=== PATIENT | male | born 1950 | race Hispanic/Latino ===

== ENCOUNTER 2017-08-27 05:54 | Day surgery (SDC) | payer OTHER ==
[2017-08-23 10:23] VITALS: BP 131/72
[2017-08-23 11:09] LABS: BASOPHILS % (AUTO) 1.1 % (0.0-5.0); EOSINOPHILS % (AUTO) 2.2 % (0.0-8.0); HEMATOCRIT 42.3 % (42-54); MEAN CORPUSCULAR HEMOGLOBIN 29.5 pg (27.0-33.0); MEAN CORPUSCULAR HGB CONC 33.3 g/dL (32.0-36.0); MEAN CORPUSCULAR VOLUME 88.5 fL (79-99); MONOCYTES % (AUTO) 6.2 % (3.0-13.0); NEUTROPHILS % (AUTO) 47.5 % (40.0-77.0); PLATELET COUNT (AUTO) 195 K/uL (130-400); RED BLOOD CELL COUNT(AUTO) 4.78 MIL/uL (4.50-6.20); WHITE BLOOD COUNT (AUTO) 6.1 K/uL (4.8-10.8)
[2017-08-23 11:23] LABS: APPEARANCE,URINE Clear (CLEAR); BILIRUBIN,URINE Negative (NEGATIVE); COLOR,URINE Yellow (YELLOW); GLUCOSE, URINE (UA) Negative (NEGATIVE); KETONES,URINE Negative (NEGATIVE); LEUKOCYTE ESTERASE ,URINE Negative (NEGATIVE); NITRATE,URINE Negative (NEGATIVE); OCCULT BLOOD,URINE Trace (NEGATIVE); PROTEIN,URINE Negative (NEGATIVE); UROBILINOGEN,URINE 0.2 mg/dL (0.2-1.0)
[2017-08-23 11:28] LABS: POTASSIUM 4.2 mmol/L (3.5-5.1)
[2017-08-23 11:32] LABS: INR 0.98 (0.85-1.15); PARTIAL THROMBOPLASTIN TIME 26.8 SEC (26.3-35.5); PROTHROMBIN TIME 10.3 SEC (9.6-11.6)
[2017-08-23 11:39] LABS: BACTERIA,URINE None Seen /HPF (None Seen); RBC,URINE 0-1 /HPF (0-1); SQUAMOUS EPITHELIAL CELL,UR 0-2 /LPF (0-2); WBC,URINE None Seen /HPF (0-1)
[2017-08-27] VITALS (10 sets, daily range): BP systolic 129–145; BP diastolic 64–74
[~2017-08-27] VITALS: Ht 172.7 cm; Wt 83.3 kg
[~2017-08-27 05:54] MED LIST: ASPI-1181 PO; ATOR-2 PO; FINA5TAB41 PO; FISH12002 PO; ISOS30TA6 PO; LOSA50TA37 PO; OMEGA 3,6,9 PO; TAMS0.4C32 PO; UBID1CAP61 PO
[2017-08-27] MEDS ORDERED: ASPI-1181 PO (06:27)
[2017-08-27] MEDS ORDERED: UBID200C37 PO (06:27)
[2017-08-27] MEDS ORDERED: SODIUM CHLORIDE 0.9% 1000ML 1,000 ML IV ONE (06:31)
[2017-08-27] MEDS ORDERED: IOPAMIDOL-370 100 ML VIAL IV ONE (07:12)
[2017-08-27] MEDS ORDERED: LIDOCAINE HCL 2% 20ML ONE (07:12)
[2017-08-27] MEDS ORDERED: HEPARIN SODIUM 1000UNIT/ML 10ML VIAL ONE (07:12)
[2017-08-27] MEDS ORDERED: ISOVUE-370 50ML VIAL IV ONE (07:12)
[2017-08-27] MEDS ORDERED: GLUCAGON 1MG KIT 1 MG ML IM PRN (08:00)
[2017-08-27] MEDS ORDERED: DEXTROSE 50%-WATER 50 ML DISP.SYRIN IV PRN (08:00)
[2017-09-10] MEDS ORDERED: GLUC-145 PO (09:29)
[2017-09-17] MEDS ORDERED: TRAM50TA2 PO (07:43)
== END 2017-08-27 12:15 | disposition home or self-care (01) ==
LOC: DAH 05:54
PROVIDERS: ATTEND Internal Medicine Cardiovascular Disease
DX: I25.10 Atherosclerotic heart disease of native coronary artery without angina pectoris (principal); I10 Essential (primary) hypertension; E78.5 Hyperlipidemia, unspecified; Z90.49 Acquired absence of other specified parts of digestive tract; Z79.899 Other long term (current) drug therapy
CPT/HCPCS: 36415; 71010; 80048; 81001; 85025; 85610; 85730; 93005; 93454; 99156; 99157; A4606; C1760; C1894; J1644; J3490; J7030; Q9967

== ENCOUNTER → 2017-11-22 | Outpatient (CLI) | payer OTHER ==
[~2017-11-22] MED LIST changes: +GLUC-145 PO; -OMEGA 3,6,9 PO; +TRAM50TA2 PO; -UBID1CAP61 PO; +UBID200C37 PO
== END | disposition home or self-care (01) ==
LOC: SHCH 10:11
PROVIDERS: ATTEND Internal Medicine Cardiovascular Disease
DX: I25.10 Atherosclerotic heart disease of native coronary artery without angina pectoris (principal)
CPT/HCPCS: 93306

== ENCOUNTER 2019-02-26 06:57 | Observation (INO) | payer OTHER, MEDICARE ==
[~2019-02-26] VITALS: Ht 172.7 cm; Wt 86.2 kg
[~2019-02-26 06:57] MED LIST changes: -LOSA50TA37 PO; +LOSA50TA64 PO
[2019-02-26 07:20] LABS: BASOPHILS % (AUTO) 1.3 % (0.0-5.0); EOSINOPHILS % (AUTO) 2.1 % (0.0-8.0); HEMATOCRIT 40.5 % (42-54); LYMPHOCYTES % (AUTO) 43.7 % (21.0-51.0); MEAN CORPUSCULAR HEMOGLOBIN 29.7 pg (27.0-33.0); MEAN CORPUSCULAR VOLUME 87.3 fL (79-99); MONOCYTES % (AUTO) 5.9 % (3.0-13.0); PLATELET COUNT (AUTO) 121 K/uL (130-400); RED BLOOD CELL COUNT(AUTO) 4.63 MIL/uL (4.50-6.20); RED CELL DISTRIBUTION WIDTH 14.2 % (11.0-15.5); WHITE BLOOD COUNT (AUTO) 5.4 K/uL (4.8-10.8)
[2019-02-26 07:29] LABS: CREATININE 1.2 mg/dL (0.5-1.5); POTASSIUM 4.1 mmol/L (3.5-5.1)
[2019-02-26 07:34] LABS: INR 1.07 (0.85-1.15); PARTIAL THROMBOPLASTIN TIME 27.8 SEC (26.3-35.5); PROTHROMBIN TIME 11.2 SEC (9.6-11.6)
[2019-02-26 07:36] LABS: ALBUMIN 3.5 g/dL (3.5-5.0); BILIRUBIN,TOTAL 0.4 mg/dL (0.2-1.0); TOTAL PROTEIN, SERUM 7.1 g/dL (6.0-8.3)
[2019-02-26] MEDS ORDERED: ASPIRIN 325 MG TABLET ONE (07:40)
[2019-02-26] MEDS ORDERED: LIDOCAINE HCL 2% VISCOUS 15 ML UDCUP ONE (07:49)
[2019-02-26] MEDS ORDERED: MAG HYDROX/AL HYDROX/SIMETH ES 30 ML SUSP UDCUP ONE (07:49)
[2019-02-26 07:56] LABS: B-TYPE NATRIURETIC PEPTIDE 94 pg/mL (0-100)
[2019-02-26] MEDS ORDERED: NITROGLYCERIN 1GM/1 INCH PACKET TD ONE (08:57)
[2019-02-26] MEDS ORDERED: ENOXAPARIN SODIUM 60 MG/0.6 ML SQ ONE (10:28)
[2019-02-26] MEDS ORDERED: ACETAMINOPHEN 325 MG TAB PO PRN ×2 (10:45)
[2019-02-26] MEDS ORDERED: NITROGLYCERIN 1GM/1 INCH PACKET TD SCH (10:45)
[2019-02-26] MEDS ORDERED: MORPHINE SULFATE 2 MG/ML 1ML SYG IV PRN (10:45)
[2019-02-26] MEDS ORDERED: HYDRALAZINE HCL 20 MG/ML VIAL IV PRN (10:45)
[2019-02-26] MEDS ORDERED: ONDANSETRON HCL 4 MG/2 ML VIAL IV PRN (10:45)
[2019-02-26 11:07] LABS: HEMOGLOBIN A1C 6.2 % (4.0-6.0)
[2019-02-26 11:26] LABS: BILIRUBIN,URINE Negative (NEGATIVE); COLOR,URINE Yellow (YELLOW); GLUCOSE, URINE (UA) Negative (NEGATIVE); KETONES,URINE Negative (NEGATIVE); LEUKOCYTE ESTERASE ,URINE Negative (NEGATIVE); NITRATE,URINE Negative (NEGATIVE); OCCULT BLOOD,URINE Negative (NEGATIVE); PROTEIN,URINE Negative (NEGATIVE)
[2019-02-26 11:27] LABS: APPEARANCE,URINE CLEAR (CLEAR)
[2019-02-26 11:57] VITALS: BP 152/83
[2019-02-26 12:56] LABS: CREATINE KINASE, TOTAL 178 U/L (21-232); MYOGLOBIN 85 ng/mL (10-92)
[2019-02-26] MEDS: NITROGLYCERIN 1GM/1 INCH PACKET TD SCH ×2 (13:15→21:04)
[2019-02-26 13:47] LABS: TROPONIN I 1.05 ng/mL (0.00-0.06)
[2019-02-26 16:00] VITALS: BP 129/87
--- NOTE | 2019-02-26 16:32 | NUR ---
DC PLAN VISITED WITH PATIENT. PATIENT LIVES WITH SPOUSE. INDEPENDENT ABLE TO PERFORM ADL'S. PATIENT HAS NO SERVICES OR DME'S. FEELS SAFE TO RETURN HOME. Addendum: 02/26/19 at 1633 by JAQUI QUISPE RN CM Amended: Links added.
[2019-02-26 19:27] VITALS: BP 140/93
[2019-02-26] MEDS ORDERED: METOPROLOL TARTRATE 25 MG TAB PO SCH (21:00)
[2019-02-26] MEDS: METOPROLOL TARTRATE 25 MG TAB PO SCH (21:00)
[2019-02-26] MEDS ORDERED: ATORVASTATIN CALCIUM 40 MG TABLET PO SCH (21:00)
[2019-02-26] MEDS: ENOXAPARIN SODIUM 100 MG/1 ML SQ SCH (21:03)
[2019-02-26 23:47] VITALS: BP 150/72
[2019-02-27] VITALS (10 sets, daily range): BP systolic 120–146; BP diastolic 53–86
[2019-02-27 04:51] LABS: CHOLESTEROL 171 mg/dL (<200); HDL CHOLESTEROL 36 mg/dL (29-71); LDL DIRECT 106 mg/dL (0-99); TRIGLYCERIDES 138 mg/dL (30-200)
[2019-02-27] MEDS: NITROGLYCERIN 1GM/1 INCH PACKET TD SCH (05:42)
[2019-02-27] MEDS ORDERED: LIDOCAINE HCL 1% 20 ML VIAL ONE (08:20)
[2019-02-27] MEDS ORDERED: HEPARIN SODIUM 1000UNIT/ML 10ML VIAL ONE (08:21)
[2019-02-27] MEDS ORDERED: IOHEXOL 350 MG/ML 100ML INFUS..BTL IV ONE ×2 (08:21→09:13)
[2019-02-27] MEDS ORDERED: IOHEXOL-350 50ML VIAL IV ONE (08:21)
[2019-02-27] MEDS ORDERED: FAMOTIDINE/PF 20 MG/2 ML VIAL IV SCH (09:00)
[2019-02-27] MEDS ORDERED: LOSARTAN 50 MG TABLET PO SCH (09:00)
[2019-02-27] MEDS ORDERED: ENOXAPARIN SODIUM 40 MG/0.4 ML SYRINGE SQ SCH (09:00)
[2019-02-27] MEDS ORDERED: ASPIRIN 325 MG TABLET PO SCH ×3 (09:00)
[2019-02-27] MEDS: METOPROLOL TARTRATE 25 MG TAB PO SCH (09:00)
[2019-02-27] MEDS: ENOXAPARIN SODIUM 100 MG/1 ML SQ SCH (09:00)
--- NOTE | 2019-02-27 10:00 | NUR ---
Patient returned from clinical laboratory manager. Pt awake and alert in no distress. patient with angioseal to Right Groin, site clean dry and intact. No s/s of bleeding or hematoma. Instructed patient/ bedrest for 3 hours. No sitting up in bed or moving right leg. Pt/ verbalized understanding. Call light placed within reach. Continue to monitor and assess.
[2019-02-27] MEDS ORDERED: RANO500T2 PO (12:01)
--- NOTE | 2019-02-27 18:04 | NUR ---
Patient discharged in stable condition. Site to right groin, clean dry and intact. No s/s of bleeding. Instructed if bleed occurs, apply pressure and call 911. Do not shower till 24 hours after cath. Instructed on when to call 911, chest pain, SOB, altered mental status, severe pain, n/v. Instructed on new prescription and how to take. pt verbalized understand to all teaching. arrived and verbalized understanding. IV removed to left and right arm. No other questions or concerns voiced.
== END 2019-02-27 18:30 | disposition home or self-care (01) ==
LOC: EDH 06:57 → EDHIP 10:37 → INTOOBSV 10:37 → 2AH 12:12
PROVIDERS: ADMIT Internal Medicine; ATTEND Internal Medicine
DX: I25.110 Atherosclerotic heart disease of native coronary artery with unstable angina pectoris (principal); I35.0 Nonrheumatic aortic (valve) stenosis; I21.4 Non-ST elevation (NSTEMI) myocardial infarction; E78.5 Hyperlipidemia, unspecified; I10 Essential (primary) hypertension; I44.7 Left bundle-branch block, unspecified; Z87.891 Personal history of nicotine dependence; Z95.1 Presence of aortocoronary bypass graft; Z95.5 Presence of coronary angioplasty implant and graft; Z83.3 Family history of diabetes mellitus; Z82.49 Family history of ischemic heart disease and other diseases of the circulatory system; Z79.899 Other long term (current) drug therapy
CPT/HCPCS: 36415 ×2; 71045; 80053; 80061; 81003; 82550 ×3; 83036; 83690; 83874 ×2; 83880; 84484 ×3; 85025; 85610; 85730; 87804 ×2; 93005 ×3; 93306; 93455; 96372; 96374; 99284; C1760; C1769 ×2; C1894; G0378 ×29; J1644; J1650 ×2; J3490; Q9965 ×2; Q9967 ×3

== ENCOUNTER → 2020-05-20 | Outpatient (CLI) | payer OTHER, MEDICARE ==
[~2020-05-20] MED LIST changes: -ASPI-1181 PO; +ASPI-1443 PO; -GLUC-145 PO; +RANO500T2 PO; +REGADENOSON 0.4 MG/5 ML PF SYG IVP SCH; -TRAM50TA2 PO
== END | disposition home or self-care (01) ==
LOC: SHCH 08:11
PROVIDERS: ATTEND Internal Medicine Cardiovascular Disease
DX: I21.29 ST elevation (STEMI) myocardial infarction involving other sites (principal); I21.19 ST elevation (STEMI) myocardial infarction involving other coronary artery of inferior wall; I25.10 Atherosclerotic heart disease of native coronary artery without angina pectoris
CPT/HCPCS: 78452; 93017; A9500 ×2; J2785; 96374

== ENCOUNTER 2021-05-20 15:19 | Emergency (ER) | payer OTHER, MEDICARE ==
[~2021-05-20] VITALS: Ht 172.7 cm; Wt 79.4 kg
[~2021-05-20 15:19] MED LIST changes: -ISOS30TA6 PO; +ISOS30TA92 PO; -REGADENOSON 0.4 MG/5 ML PF SYG IVP SCH
[2021-05-20 15:22] VITALS: BP 111/63
[2021-05-20 15:48] LABS: EOSINOPHILS % (AUTO) 2.6 % (0.0-8.0); LYMPHOCYTES % (AUTO) 46.8 % (21.0-51.0); MEAN CORPUSCULAR HEMOGLOBIN 30.6 pg (27.0-33.0); MEAN CORPUSCULAR HGB CONC 34.6 g/dL (32.0-36.0); MEAN CORPUSCULAR VOLUME 88.4 fL (79-99); MONOCYTES % (AUTO) 6.4 % (3.0-13.0); PLATELET COUNT (AUTO) 131 K/uL (130-400); RED BLOOD CELL COUNT(AUTO) 4.41 MIL/uL (4.50-6.20); RED CELL DISTRIBUTION WIDTH 13.2 % (11.0-15.5); WHITE BLOOD COUNT (AUTO) 5.8 K/uL (4.8-10.8)
[2021-05-20 16:02] LABS: INR 1.05 (0.85-1.15); PROTHROMBIN TIME 11.4 SEC (9.6-11.6)
[2021-05-20 16:03] LABS: PARTIAL THROMBOPLASTIN TIME 24.9 SEC (26.3-35.5)
[2021-05-20 16:07] LABS: B-TYPE NATRIURETIC PEPTIDE 65 pg/mL (0-100)
[2021-05-20 16:16] LABS: CREATININE 1.6 mg/dL (0.5-1.5); POTASSIUM 4.1 mmol/L (3.5-5.1)
[2021-05-20 16:20] LABS: ALBUMIN 3.6 g/dL (3.5-5.0); BILIRUBIN,TOTAL 0.5 mg/dL (0.2-1.0)
[2021-05-20] MEDS ORDERED: 0.9%NACL 1000ML 1,000 ML IV ONE (17:00)
[2021-05-20] MEDS ORDERED: KETOROLAC 15MG/ML VIAL (15MG/ML) IM ONE (17:00)
[2021-05-20 19:37] VITALS: BP 124/72
[2021-05-20 20:12] VITALS: BP 110/80
== END 2021-05-20 20:15 | disposition home or self-care (01) ==
LOC: EDH 15:19
DX: M94.0 Chondrocostal junction syndrome [Tietze] (principal); R07.89 Other chest pain; M62.82 Rhabdomyolysis; I10 Essential (primary) hypertension; E78.00 Pure hypercholesterolemia, unspecified; J44.9 Chronic obstructive pulmonary disease, unspecified; Z79.1 Long term (current) use of non-steroidal anti-inflammatories (NSAID); Z79.82 Long term (current) use of aspirin; Z79.899 Other long term (current) drug therapy; Z95.1 Presence of aortocoronary bypass graft
CPT/HCPCS: 36415; 71045; 80053; 82550; 83880; 84484 ×2; 85025; 85610; 85730; 93005 ×2; 96360; 96361; 96372; 99285; J1885; J7030

== ENCOUNTER → 2022-03-06 | Outpatient (CLI) | payer OTHER, MEDICARE | END | disposition home or self-care (01) | LOC: SHCH 10:16 | PROVIDERS: ATTEND Internal Medicine Cardiovascular Disease | DX: Z95.2 Presence of prosthetic heart valve (principal) | CPT/HCPCS: 93306 ==

== ENCOUNTER → 2022-04-23 | Outpatient (CLI) | payer OTHER, MEDICARE ==
[~2022-04-23] MED LIST changes: +REGADENOSON 0.4 MG/5 ML PF SYG IVP SCH
== END | disposition home or self-care (01) ==
LOC: SHCH 07:35
PROVIDERS: ATTEND Internal Medicine Cardiovascular Disease
DX: I35.0 Nonrheumatic aortic (valve) stenosis (principal); I10 Essential (primary) hypertension; E78.5 Hyperlipidemia, unspecified; Z95.1 Presence of aortocoronary bypass graft; Z95.3 Presence of xenogenic heart valve
CPT/HCPCS: 78452; 96374; 93017; J2785; A9500 ×2

== ENCOUNTER → 2022-09-19 | Outpatient (CLI) | payer OTHER, MEDICARE ==
[~2022-09-19] MED LIST changes: -REGADENOSON 0.4 MG/5 ML PF SYG IVP SCH
== END | disposition home or self-care (01) ==
LOC: SHCH 07:41
PROVIDERS: ATTEND Internal Medicine Cardiovascular Disease
DX: I10 Essential (primary) hypertension (principal); I35.0 Nonrheumatic aortic (valve) stenosis; E78.5 Hyperlipidemia, unspecified; I34.0 Nonrheumatic mitral (valve) insufficiency; Z95.1 Presence of aortocoronary bypass graft; Z95.2 Presence of prosthetic heart valve
CPT/HCPCS: 93306

== ENCOUNTER 2022-12-13 11:48 | Emergency (ER) | payer OTHER, MEDICARE ==
[~2022-12-13] VITALS: Ht 170.2 cm; Wt 86.2 kg
[2022-12-13 12:48] LABS: INR 1.02 (0.85-1.15); PROTHROMBIN TIME 11.1 SEC (9.6-11.6)
[2022-12-13 12:49] LABS: BASOPHILS % (AUTO) 0.5 % (0.0-5.0); EOSINOPHILS % (AUTO) 1.3 % (0.0-8.0); HEMATOCRIT 39.4 % (42-54); LYMPHOCYTES % (AUTO) 37.6 % (21.0-51.0); MEAN CORPUSCULAR HEMOGLOBIN 30.6 pg (27.0-33.0); MEAN CORPUSCULAR HGB CONC 34.3 g/dL (32.0-36.0); MEAN CORPUSCULAR VOLUME 89.3 fL (79-99); MONOCYTES % (AUTO) 8.4 % (3.0-13.0); NEUTROPHILS % (AUTO) 51.9 % (40.0-77.0); PLATELET COUNT (AUTO) 139 K/uL (130-400); RED BLOOD CELL COUNT(AUTO) 4.41 MIL/uL (4.50-6.20); WHITE BLOOD COUNT (AUTO) 5.9 K/uL (4.8-10.8)
[2022-12-13 12:54] LABS: CREATININE 1.2 mg/dL (0.5-1.5); POTASSIUM 4.3 mmol/L (3.5-5.1)
[2022-12-13 12:59] LABS: ALBUMIN 3.8 g/dL (3.5-5.0); TOTAL PROTEIN, SERUM 7.1 g/dL (6.0-8.3)
[2022-12-13 13:52] LABS: APPEARANCE,URINE CLEAR (CLEAR); BILIRUBIN,URINE NEGATIVE (NEGATIVE); COLOR,URINE LIGHT-YELLOW (YELLOW); GLUCOSE, URINE (UA) NEGATIVE (NEGATIVE); KETONES,URINE NEGATIVE (NEGATIVE); LEUKOCYTE ESTERASE ,URINE NEGATIVE Leu/uL (NEGATIVE); NITRATE,URINE NEGATIVE (NEGATIVE); OCCULT BLOOD,URINE NEGATIVE (NEGATIVE); PROTEIN,URINE NEGATIVE (NEGATIVE); UROBILINOGEN,URINE 0.2 mg/dL (0.2-1.0)
[2022-12-13 16:22] VITALS: BP 133/73
== END 2022-12-13 16:23 | disposition home or self-care (01) ==
LOC: EDH 11:48
DX: R07.9 Chest pain, unspecified (principal); I10 Essential (primary) hypertension; E11.9 Type 2 diabetes mellitus without complications; Z87.440 Personal history of urinary (tract) infections; Z79.899 Other long term (current) drug therapy
CPT/HCPCS: 36415; 71045; 80053; 81003; 84484; 85025; 85610; 93005

== ENCOUNTER → 2023-06-03 | Outpatient (CLI) | payer OTHER ==
[~2023-06-03] MED LIST changes: -ASPI-1443 PO; -ATOR-2 PO; +CLOP75TA32 PO; +EZET10TA48 PO; +FAMO40TA75 PO; +HYDR12.54 PO; +ISOS20TA85 PO; -ISOS30TA92 PO; +LOSA100T59 PO; -LOSA50TA64 PO; +MIRA50TA PO; +OMEP40CA21 PO; -RANO500T2 PO; +ROSU40TA21 PO; +SOLI10TA7 PO; +WHEA1TAB7 PO
== END | disposition home or self-care (01) ==
LOC: RAH 08:50
PROVIDERS: ATTEND Internal Medicine Medical Oncology
DX: D69.6 Thrombocytopenia, unspecified (principal); Z90.49 Acquired absence of other specified parts of digestive tract
CPT/HCPCS: 76700

== ENCOUNTER → 2023-11-05 | Outpatient (CLI) | payer OTHER ==
[~2023-11-05] MED LIST changes: +REGADENOSON 0.4 MG/5 ML PF SYG IVP ONE
== END | disposition home or self-care (01) ==
LOC: SHCH 09:01
PROVIDERS: ATTEND Internal Medicine Cardiovascular Disease
DX: I44.7 Left bundle-branch block, unspecified (principal); I25.10 Atherosclerotic heart disease of native coronary artery without angina pectoris
CPT/HCPCS: 78452; 96374; 93017; J2785; A9500 ×2

== ENCOUNTER → 2024-03-11 | Outpatient (CLI) | payer OTHER ==
[~2024-03-11] MED LIST changes: -REGADENOSON 0.4 MG/5 ML PF SYG IVP ONE; -ROSU40TA21 PO; +ROSU40TA70 PO
== END | disposition home or self-care (01) ==
LOC: SHCH 08:41
PROVIDERS: ATTEND Internal Medicine Cardiovascular Disease
DX: T82.857A Stenosis of other cardiac prosthetic devices, implants and grafts, initial encounter (principal); I34.0 Nonrheumatic mitral (valve) insufficiency; I34.81 Nonrheumatic mitral (valve) annulus calcification; I11.9 Hypertensive heart disease without heart failure; Z95.1 Presence of aortocoronary bypass graft; Z95.2 Presence of prosthetic heart valve; Y71.2 Prosthetic and other implants, materials and accessory cardiovascular devices associated with adverse incidents; Y92.89 Other specified places as the place of occurrence of the external cause
CPT/HCPCS: 93306

== ENCOUNTER → 2024-05-22 | Outpatient (CLI) | payer OTHER ==
[2024-05-22 11:08] LABS: ALBUMIN 3.6 g/dL (3.5-5.0); BILIRUBIN,TOTAL 0.5 mg/dL (0.2-1.0); CREATININE 1.2 mg/dL (0.5-1.3); POTASSIUM 4.1 mmol/L (3.5-5.1); TOTAL PROTEIN, SERUM 7.4 g/dL (6.0-8.3)
== END | disposition home or self-care (01) ==
LOC: LAB 10:19
PROVIDERS: ATTEND Internal Medicine Cardiovascular Disease
DX: I10 Essential (primary) hypertension (principal)
CPT/HCPCS: 36415; 80053